=== PATIENT | male | born 1980 | race Caucasian/White ===

== ENCOUNTER 2018-12-05 12:58 | Emergency (ER) | payer OTHER ==
[~2018-12-05] VITALS: Ht 195.6 cm; Wt 83.9 kg
--- NOTE | 2018-12-05 13:00 | NUR ---
PT STATES "I ACCIDENTALLY TOOK 10 EXCEDERINE PILLS BECAUSE I THOUGHT THEY WERE SKITTLES." PT A/OX4, DELAYED RESPONSE, UNSTEADY GAIT. NO OTHER DEFICITS NOTED. NSR ON MONITOR, VSS.
[2018-12-05 13:03] VITALS: BP 128/82
--- NOTE | 2018-12-05 13:03 | NUR ---
PT TO ER BED 8
--- NOTE | 2018-12-05 13:20 | NUR ---
SPOKE TO HIGINIO FROM POISON CONTROLL AND RECOMMENDED TO GIVE CHATRCOAL NOW IF WE'RE CERTAIN WITH HISTORY, DRAW A CMP/ TYLENOL/ASP LEVEL AT 4 HRS POST INGESTION, AND UA TOX NOW. DR. DELEON MADE AWARE.
--- NOTE | 2018-12-05 13:22 | NUR ---
DR. DELEON AT BEDSIDE
[2018-12-05] MEDS ORDERED: ACTIVATED CHARCOAL 50 GM/240 ML TUBE PO ONE (13:30)
--- NOTE | 2018-12-05 13:45 | NUR ---
PT UNABLE TO PROVIDE URINE AT THIS TIME, DR. DELEON MADE AWARE
--- NOTE | 2018-12-05 13:50 | NUR ---
LAB AT BEDSIDE
[2018-12-05 14:08] LABS: BASOPHILS % (AUTO) 0.7 % (0.0-2.0); EOSINOPHILS % (AUTO) 0.5 % (0.0-4.0); HEMOGLOBIN 14.5 g/dL (12.0-18.0); LYMPHOCYTES # (AUTO) 1.6 K/uL (2.0-11.5); LYMPHOCYTES % (AUTO) 27.3 % (20.5-51.1); MEAN CORPUSCULAR HEMOGLOBIN 30 pg (27-31); MEAN CORPUSCULAR HGB CONC 34 g/dL (33-37); MEAN CORPUSCULAR VOLUME 89.9 fL (80-94); MONOCYTES # (AUTO) 0.7 K/uL (0.8-1.0); MONOCYTES % (AUTO) 11.7 % (1.7-9.3); NEUTROPHILS # (AUTO) 3.5 K/uL (1.8-7.7); NEUTROPHILS % (AUTO) 59.8 % (42.2-75.2); PLATELET COUNT (AUTO) 177 K/uL (140-450); RED BLOOD CELL COUNT(AUTO) 4.78 MIL/uL (4.20-6.10); RED CELL DISTRIBUTION WIDTH 13.4 % (11.6-13.7); WHITE BLOOD COUNT (AUTO) 5.8 K/uL (4.8-10.8)
--- NOTE | 2018-12-05 14:09 | NUR ---
pt unable to provide urine at this time dr. luis belcher.
[2018-12-05 14:21] LABS: CHLORIDE 102 mmol/L (98-107); GFR ARICAN-AMERICAN 108 mL/min (>90); GLUCOSE 97 mg/dL (74-106); SODIUM SERUM 139 mmol/L (136-145); UREA NITROGEN, BLOOD 15 mg/dL (7-18)
--- NOTE | 2018-12-05 14:24 | NUR ---
PT AMB W/O ASST TO BRP-[id number]
[2018-12-05 14:34] LABS: ACETAMINOPHEN 13.6 ug/ml (10-30); ALBUMIN 3.9 g/dL (3.4-5.0); ASPARTATE AMINOTRANSFERASE 14 U/L (15-37); SALICYLATE 2.9 mg/dL (2.8-20.0); TOTAL BILIRUBIN 1.9 mg/dL (0.0-1.0)
[2018-12-05 14:49] LABS: BARBITURATE, URINE NEG. ng/ml (NEG <=200); BENZODIAZEPINE, URINE NEG. ng/mL (NEG <=200); CANNABINOID, URINE NEG. ng/mL (NEG <=50); COCAINE, URINE NEG. ng/mL (NEG <=300); OPIATE, URINE NEG. ng/mL (NEG <=2000); PHENCYCLIDINE SCREEN,URINE NEG. ng/mL (NEG <=25)
--- NOTE | 2018-12-05 16:34 | NUR ---
SPOKE WITH NIK FROM POISON CONTROL AND ADVISED TO REDRAW SALICYLATE/ACETAMINOPHEN/ BMP, DR. DELEON MADE AWARE.
[2018-12-05 17:13] LABS: ANION GAP 13.5 (8-16); CARBON DIOXIDE 28.4 mmol/L (21-32); POTASSIUM 3.9 mmol/L (3.5-5.1)
[2018-12-05 17:19] LABS: ACETAMINOPHEN 3.5 ug/ml (10-30); SALICYLATE 5.9 mg/dL (2.8-20.0)
--- NOTE | 2018-12-05 18:07 | NUR ---
TALKED TO CRYSTAL FROM [facility] AND SHE RECOMENDED ANOTHER SALICYLATES LAB DRAW AT [address] UPWARD TREND. [address] NEAL MADE AWARE.
--- NOTE | 2018-12-05 18:39 | NUR ---
Note tristarhett in EDM - 12/05/18 at 1845 by [email or web address] Patient discharged with v/s stable. Written and verbal after care instructions given and explained. Patient alert, oriented and verbalized understanding of instructions. Ambulatory with steady gait. All questions addressed prior to discharge. ID band removed. Patient advised to follow up with PMD. Rx of claritin given. Patient educated on indication of medication including possible reaction and side effects. Opportunity to ask questions provided and answered.
[2018-12-05 20:22] VITALS: BP 120/72
--- NOTE | 2018-12-05 20:22 | NUR ---
Patient discharged with v/s stable. Written and verbal after care instructions given and explained. Patient verbalized understanding. Ambulatory with steady gait. All questions addressed prior to discharge. Advised to follow up with PMD.
== END 2018-12-05 20:22 | disposition home or self-care (01) ==
LOC: MED 12:58
DX: T39.1X1A Poisoning by 4-Aminophenol derivatives, accidental (unintentional), initial encounter (principal); Y92.89 Other specified places as the place of occurrence of the external cause
CPT/HCPCS: 36415; 80048; 80053; 80305; 81002; 85025; 99283; G0480; G0482